=== PATIENT | female | born 1980 | race Caucasian/White ===

== ENCOUNTER 2017-11-18 19:09 | Emergency (ER) | payer OTHER ==
[~2017-11-18] VITALS: Ht 175.3 cm; Wt 74.8 kg
[~2017-11-18 19:09] MED LIST: ACETAMINOPHEN-1 EAC1 PO; ACETAMINOPHEN325 M1 PO; ALPRAZOLAM; AMITRIPTYLINE H25 M2; BACTRIM DS TAB1 EACH PO; BENADRYL25 MG PO; BLEPH-105 ML OPHTHALMIC; CIPROFLOXACIN500 M1 PO; CYCLOBENZAPRINE5 MG PO; FLOMAX0.4 MG PO; IBUPROFEN 200200 M1; IBUPROFEN 800800 M1 PO; IBUPROFEN 800800 MG PO; KEFLEX500 MG PO; MEDROLDOSEPACK PO; MOBIC7.5 MG PO; NEURONTIN 300300 M1 PO; NOHOMEMEDICATIONS; NORCO 5-325 TA1 EACH PO; ONDANSETRON HCL4 M2 PO; PAROXETINE; PAXIL20 MG; PHENERGAN 25 MG25 M1 PO; PROAIR HFA8.5 GM INH; PROMETHAZINE HC25 MG RECTAL; ROBAXIN 750 MG750 M1 PO; SPRINTEC1 EACH; ZANTAC 150MG T150 MG PO; ZOFRAN 4 MG ORAL4 MG PO; ZOFRAN ODT4 MG PO; ZPAK PO
[2017-11-18 19:33] LABS: ABSOLUTE BASOPHILS 0.1 thou/uL (0.0-0.2); ABSOLUTE LYMPHOCYTES 2.8 thou/uL (0.8-5.3); ABSOLUTE NEUTROPHILS 5.2 thou/uL (1.6-8.1); BASOPHILS 0.6 %; EOSINOPHILS 0.5 %; HEMATOCRIT 43.3 % (37.0-47.0); HEMOGLOBIN 14.2 gm/dL (12.0-15.0); LYMPHOCYTES 31.1 %; MCH 29.6 pg (26.0-34.0); MCHC 32.8 g/dL (28.0-37.0); MCV 90.3 fL (80.0-100.0); MONOCYTES 10.9 %; MPV 8.3 fl. (7.2-11.1); NUCLEATED RBCS 0 /100WBC; PLATELET COUNT* 330 thou/uL (150-400); POLYS 56.9 %; RBC 4.79 mil/uL (4.20-5.00); RDW-CV 14.3 % (10.5-14.5); WBC 9.1 thou/uL (4.0-11.0)
[2017-11-18 19:33] LABS: URINE BLOOD NEGATIVE (Negative); URINE CLARITY CLEAR; URINE COLOR YELLOW; URINE GLUCOSE-RANDOM NEGATIVE (Negative); URINE KETONES 1+ (Negative); URINE LEUKOCYTES-REFLEX 1+ (Negative); URINE NITRITE-REFLEX NEGATIVE (Negative); URINE PROTEIN NEGATIVE (Negative); URINE SPECIFIC GRAVITY 1.025 (1.005-1.030); URINE UROBILINOGEN 0.2 E.U./dl (0.2-1.0)
[2017-11-18 19:34] LABS: ICTOTEST (BILI CONFIRMATORY) Negative (Negative); URINE BILIRUBIN 1+ (Negative)
[2017-11-18 19:41] LABS: CALCIUM 9.2 mg/dL (8.5-10.1)
[2017-11-18 19:42] LABS: SQUAMOUS >10 Many /LPF (0-3); URINE WBC-REFLEX 0-5 Rare /HPF (0-5)
[2017-11-18 19:43] LABS: BACTERIA-REFLEX 1-9 Few /HPF (None Seen); CASTS None Seen /LPF (None Seen); CRYSTALS None Seen /LPF (None Seen); MUCUS >6 Heavy strn/LPF (None Seen); URINE RBC None Seen /HPF (0-2)
[2017-11-18 19:45] LABS: ALBUMIN 4.1 g/dL (3.4-5.0); TOTAL PROTEIN 8.1 g/dL (6.4-8.2)
[2017-11-18 20:27] VITALS: BP 122/82
== END 2017-11-18 20:28 | disposition home or self-care (01) ==
LOC: M.ERS 19:09
PROVIDERS: Family Medicine
DX: R10.9 Unspecified abdominal pain (principal); G43.909 Migraine, unspecified, not intractable, without status migrainosus; F41.9 Anxiety disorder, unspecified; F17.210 Nicotine dependence, cigarettes, uncomplicated

== ENCOUNTER 2020-02-21 01:59 | Emergency (ER) | payer OTHER ==
[~2020-02-21] VITALS: Ht 175.3 cm; Wt 63.5 kg
[2020-02-21 02:17] LABS: URINE CLARITY CLEAR; URINE COLOR ORANGE
[2020-02-21 02:19] LABS: CASTS None Seen /LPF (None Seen); CRYSTALS None Seen /LPF (None Seen); SQUAMOUS >10 Many /LPF (0-3); URINE RBC >20 Many /HPF (0-2); URINE WBC-REFLEX 0-5 Rare /HPF (0-5)
[2020-02-21] MEDS ORDERED: HYDROCODON-ACE1 EAC8 PO (03:57)
[2020-02-21] MEDS ORDERED: ZOFRAN ODT4 MG PO (03:57)
[2020-02-21 04:20] VITALS: BP 120/78
== END 2020-02-21 04:21 | disposition home or self-care (01) ==
LOC: M.ERS 01:59
PROVIDERS: Emergency Medicine
DX: N20.1 Calculus of ureter (principal); G43.909 Migraine, unspecified, not intractable, without status migrainosus; N80.9 Endometriosis, unspecified; F17.210 Nicotine dependence, cigarettes, uncomplicated; Z87.442 Personal history of urinary calculi

== ENCOUNTER 2020-02-21 08:16 | Emergency (ER) | payer OTHER ==
[~2020-02-21] VITALS: Ht 165.1 cm; Wt 63.5 kg
[~2020-02-21 08:16] MED LIST changes: +HYDROCODON-ACE1 EAC8 PO
[2020-02-21 14:43] LABS: URINE CLARITY CLOUDY; URINE COLOR ORANGE
[2020-02-21 14:47] LABS: AMORPHOUS URATES Many /LPF (None Seen); MUCUS 0-3 Light strn/LPF (None Seen); SQUAMOUS >10 Many /LPF (0-3)
[2020-02-21 14:48] LABS: BACTERIA-REFLEX 1-9 Few /HPF (None Seen); CASTS None Seen /LPF (None Seen); URINE RBC 0-2 Rare /HPF (0-2); URINE WBC-REFLEX 0-5 Rare /HPF (0-5)
[2020-02-21 15:04] LABS: CREATININE 1.3 mg/dL (0.6-1.3); POTASSIUM 3.7 mmol/L (3.5-5.1)
[2020-02-21 15:09] LABS: ALBUMIN 3.6 g/dL (3.4-5.0); TOTAL BILIRUBIN 0.5 mg/dL (<0.1-1.0); TOTAL PROTEIN 7.3 g/dL (6.4-8.2)
[2020-02-21 16:13] LABS: ABSOLUTE EOSINOPHILS 0.4 thou/uL (0.0-0.7); ABSOLUTE LYMPHOCYTES 2.1 thou/uL (0.8-5.3); BASOPHILS 0.3 %; EOSINOPHILS 3.7 %; HEMATOCRIT 37.2 % (37.0-47.0); HEMOGLOBIN 12.3 gm/dL (12.0-15.0); LYMPHOCYTES 17.8 %; MCH 29.2 pg (26.0-34.0); MCV 88.6 fL (80.0-100.0); MONOCYTES 8.9 %; MPV 8.9 fl. (7.2-11.1); NUCLEATED RBCS 0 /100WBC; PLATELET COUNT* 347 thou/uL (150-400); POLYS 69.3 %; RDW-CV 15.3 % (10.5-14.5); WBC 11.6 thou/uL (4.0-11.0)
[2020-02-21 17:22] VITALS: BP 125/60
== END 2020-02-21 17:22 | disposition short-term general hospital (02) ==
LOC: M.ERS 08:16
PROVIDERS: Personal Emergency Response Attendant
DX: N20.1 Calculus of ureter (principal); N13.30 Unspecified hydronephrosis; N20.2 Calculus of kidney with calculus of ureter; Z20.828 Contact with and (suspected) exposure to other viral communicable diseases; R11.2 Nausea with vomiting, unspecified; G43.909 Migraine, unspecified, not intractable, without status migrainosus; N80.9 Endometriosis, unspecified; F17.210 Nicotine dependence, cigarettes, uncomplicated

== ENCOUNTER 2020-12-01 11:14 | Emergency (ER) | payer OTHER ==
[~2020-12-01] VITALS: Ht 175.3 cm; Wt 65.8 kg
[2020-12-01 11:29] LABS: URINE COLOR ORANGE
[2020-12-01 11:44] LABS: ICTOTEST (BILI CONFIRMATORY) Negative (Negative); URINE CLARITY SL HAZY; URINE REDUCING SUBSTANCE NEGATIVE (Negative)
[2020-12-01 11:48] LABS: ACETEST (KETONE CONFIRMATORY) Small (Negative)
[2020-12-01 11:50] LABS: URINE BILIRUBIN ND (Negative); URINE BLOOD ND (Negative); URINE GLUCOSE-RANDOM ND (Negative); URINE KETONES ND (Negative); URINE NITRITE-REFLEX ND (Negative); URINE PROTEIN ND (Negative)
[2020-12-01 11:51] LABS: URINE LEUKOCYTES-REFLEX ND (Negative); URINE SPECIFIC GRAVITY 1.019 (1.005-1.030); URINE UROBILINOGEN ND E.U./dl (0.2-1.0)
[2020-12-01 11:52] LABS: CASTS None Seen /LPF (None Seen); CRYSTALS None Seen /LPF (None Seen); MUCUS None Seen strn/LPF (None Seen); SQUAMOUS >10 Many /LPF (0-3); URINE RBC >20 Many /HPF (0-2); URINE WBC-REFLEX >25 Many /HPF (0-5)
[2020-12-01 11:56] LABS: ABSOLUTE BASOPHILS 0.1 thou/uL (0.0-0.2); ABSOLUTE EOSINOPHILS 0.4 thou/uL (0.0-0.7); ABSOLUTE MONOCYTES 0.9 thou/uL (0.0-1.2); ABSOLUTE NEUTROPHILS 7.8 thou/uL (1.6-8.1); BASOPHILS 0.8 %; EOSINOPHILS 3.2 %; HEMATOCRIT 39.2 % (37.0-47.0); HEMOGLOBIN 12.8 gm/dL (12.0-15.0); LYMPHOCYTES 17.8 %; MCH 29.7 pg (26.0-34.0); MCHC 32.6 g/dL (28.0-37.0); MCV 91.4 fL (80.0-100.0); MONOCYTES 8.4 %; NUCLEATED RBCS 0 /100WBC; PLATELET COUNT* 318 thou/uL (150-400); POLYS 69.8 %; RBC 4.29 mil/uL (4.20-5.00); RDW-CV 13.6 % (10.5-14.5); WBC 11.2 thou/uL (4.0-11.0)
[2020-12-01 12:04] LABS: CALCIUM 9.3 mg/dL (8.5-10.1); CREATININE 0.7 mg/dL (0.6-1.3); POTASSIUM 4.1 mmol/L (3.5-5.1)
[2020-12-01 12:08] LABS: ALBUMIN 4.1 g/dL (3.4-5.0); TOTAL BILIRUBIN 0.3 mg/dL (<0.1-1.0); TOTAL PROTEIN 8.1 g/dL (6.4-8.2)
[2020-12-01] MEDS ORDERED: IBUPROFEN 800800 M1 PO (12:26)
[2020-12-01] MEDS ORDERED: ULTRAM 50MG TAB50 MG PO (12:26)
[2020-12-01] MEDS ORDERED: BACTRIM DS TAB1 EACH PO (12:26)
[2020-12-01 12:36] VITALS: BP 140/75
== END 2020-12-01 12:36 | disposition home or self-care (01) ==
LOC: M.ERS 11:14
PROVIDERS: Nurse Practitioner Family
DX: N39.0 Urinary tract infection, site not specified (principal); G43.909 Migraine, unspecified, not intractable, without status migrainosus; N80.9 Endometriosis, unspecified; F17.210 Nicotine dependence, cigarettes, uncomplicated; Z98.51 Tubal ligation status; Z87.442 Personal history of urinary calculi

== ENCOUNTER 2021-04-12 14:37 | Emergency (ER) | payer OTHER ==
[~2021-04-12] VITALS: Ht 175.3 cm; Wt 63.5 kg
[~2021-04-12 14:37] MED LIST changes: +ULTRAM 50MG TAB50 MG PO
[2021-04-12 15:08] LABS: HEMATOCRIT 40.6 % (37.0-47.0); HEMOGLOBIN 13.4 gm/dL (12.0-15.0); MCH 29.4 pg (26.0-34.0); MCHC 33.1 g/dL (28.0-37.0); MPV 7.5 fl. (7.2-11.1); NUCLEATED RBCS 0 /100WBC; PLATELET COUNT* 316 thou/uL (150-400); RBC 4.56 mil/uL (4.20-5.00); RDW-CV 13.8 % (10.5-14.5); WBC 3.5 thou/uL (4.0-11.0)
[2021-04-12 15:17] LABS: CALCIUM 8.7 mg/dL (8.5-10.1); CREATININE 1.1 mg/dL (0.6-1.3)
[2021-04-12 15:21] LABS: TOTAL BILIRUBIN 0.3 mg/dL (<0.1-1.0); TOTAL PROTEIN 7.9 g/dL (6.4-8.2)
[2021-04-12 15:27] LABS: URINE BILIRUBIN NEGATIVE (Negative); URINE BLOOD 3+ (Negative); URINE CLARITY CLOUDY; URINE COLOR YELLOW; URINE GLUCOSE-RANDOM NEGATIVE (Negative); URINE KETONES 1+ (Negative); URINE LEUKOCYTES-REFLEX NEGATIVE (Negative); URINE NITRITE-REFLEX NEGATIVE (Negative); URINE PROTEIN 2+ (Negative); URINE SPECIFIC GRAVITY >= 1.030 (1.005-1.030); URINE UROBILINOGEN 0.2 E.U./dl (0.2-1.0)
[2021-04-12 15:43] LABS: CRYSTALS None Seen /LPF (None Seen); MUCUS >6 Heavy strn/LPF (None Seen); SQUAMOUS >10 Many /LPF (0-3); URINE RBC >20 Many /HPF (0-2)
[2021-04-12 15:45] LABS: BACTERIA-REFLEX 1-9 Few /HPF (None Seen); HYALINE CASTS 0-3 Few /LPF (None Seen); URINE WBC-REFLEX 6-15 Few /HPF (0-5)
[2021-04-12 15:49] LABS: INFLUENZA A ANTIGEN Negative (Negative); INFLUENZA B ANTIGEN Negative (Negative)
[2021-04-12 15:54] LABS: ABSOLUTE LYMPHOCYTES 0.5 thou/uL (0.8-5.3); ABSOLUTE MONOCYTES 0.7 thou/uL (0.0-1.2); ABSOLUTE NEUTROPHILS 2.3 thou/uL (1.6-8.1)
[2021-04-12 15:55] LABS: PLATELET ESTIMATE ADEQUATE
[2021-04-12] MEDS ORDERED: TESSALON PERLE100 M1 PO (15:57)
[2021-04-12] MEDS ORDERED: ZOFRAN ODT4 MG DISSOLVE (15:57)
[2021-04-12 16:13] VITALS: BP 118/54
--- NOTE | 2021-04-14 11:39 | EKG ---
[place] [address] ELECTROCARDIOGRAM REPORT Name: SHAISTA TRONCOSO Room: [facility]#: [id number] Admission: 04/12/21 Attend Phys: Discharge: 04/12/21 Date of : 80 Date of Service: 04/12/21 1533 Report #: [id number] THIS REPORT FOR: //name// [facility] ED Test Date: 2021-04-12 Test Time: 15:33:22 Pat Name: SHAISTA TRONCOSO Department: Room: Gender: F Carpet Layer: CD : 1980 Requested By: Mk Mcelroy Order Number: [id number] MD: Cristobal Cobos Measurements Intervals [place] Rate: 82 P: 31 NE: 142 QRS: 78 QRSD: 93 T: 47 QT: 371 QTc: 434 Interpretive Statements Sinus rhythm Compared to ECG 04/30/2017 17:36:27 ST (T wave) deviation no longer present Electronically Signed On 04-14-2021 11:38:34 CDT by Cristobal Cobos [email or web address] <ELECTRONICALLY SIGNED> By: Cristobal Cobos MD, [facility] 04/14/21 1138 1533 1533 Cristobal Cobos MD, [facility] /EPI
== END 2021-04-12 16:15 | disposition home or self-care (01) ==
LOC: M.ERS 14:37
PROVIDERS: Emergency Medicine Emergency Medical Services
DX: U07.1 COVID-19 (principal); R11.2 Nausea with vomiting, unspecified; G43.909 Migraine, unspecified, not intractable, without status migrainosus; F41.9 Anxiety disorder, unspecified; F17.210 Nicotine dependence, cigarettes, uncomplicated; Z98.51 Tubal ligation status; Z87.42 Personal history of other diseases of the female genital tract; Z87.442 Personal history of urinary calculi

== ENCOUNTER 2021-08-11 10:58 | Emergency (ER) | payer OTHER ==
[~2021-08-11] VITALS: Ht 175.3 cm; Wt 72.6 kg
[~2021-08-11 10:58] MED LIST changes: +TESSALON PERLE100 M1 PO; +ZOFRAN ODT4 MG DISSOLVE
[2021-08-11] MEDS ORDERED: NORCO5 PO (11:28)
[2021-08-11 12:17] LABS: URINE BILIRUBIN NEGATIVE (Negative); URINE BLOOD TRACE (Negative); URINE CLARITY CLEAR; URINE COLOR YELLOW; URINE GLUCOSE-RANDOM NEGATIVE (Negative); URINE KETONES NEGATIVE (Negative); URINE LEUKOCYTES-REFLEX NEGATIVE (Negative); URINE NITRITE-REFLEX NEGATIVE (Negative); URINE PROTEIN TRACE (Negative); URINE SPECIFIC GRAVITY >= 1.030 (1.005-1.030); URINE UROBILINOGEN 0.2 E.U./dl (0.2-1.0)
[2021-08-11] MEDS ORDERED: MEDROLDOSEPACK PO (13:57)
[2021-08-11] MEDS ORDERED: NAPROSYN500 MG PO (13:57)
[2021-08-11] MEDS ORDERED: ZOFRAN ODT4 MG PO (13:57)
[2021-08-11] MEDS ORDERED: PERCOCET PO (13:59)
[2021-08-11 14:13] VITALS: BP 146/82
== END 2021-08-11 14:13 | disposition home or self-care (01) ==
LOC: M.ERS 10:58
PROVIDERS: Nurse Practitioner Family
DX: M54.6 Pain in thoracic spine (principal); M25.511 Pain in right shoulder; G43.909 Migraine, unspecified, not intractable, without status migrainosus; F41.9 Anxiety disorder, unspecified; F17.210 Nicotine dependence, cigarettes, uncomplicated; Z98.51 Tubal ligation status; Z87.442 Personal history of urinary calculi; Z87.42 Personal history of other diseases of the female genital tract; Z79.899 Other long term (current) drug therapy; X50.0XXA Overexertion from strenuous movement or load, initial encounter; Y93.89 Activity, other specified; Y92.69 Other specified industrial and construction area as the place of occurrence of the external cause; Y99.0 Civilian activity done for income or pay